=== PATIENT | male | born 2000 | race Caucasian/White ===

== ENCOUNTER 2019-12-11 15:24 | Emergency (ER) | payer BC, OTHER ==
[2019-12-11] MEDS ORDERED: Ketorolac 10 MG Tab PO ONE (15:25)
--- NOTE | 2019-12-11 15:52 | EDM.PDOC ---
ED HPI GENERAL MEDICAL PROBLEM - General Chief Complaint: Upper Extremity Injury/Pain Stated Complaint: R shoulder pain Time Seen by Provider: 12/11/19 15:36 Source of Information: Reports: Patient, Family, RN Notes Reviewed - History of Present Illness INITIAL COMMENTS - FREE TEXT/NARRATIVE: Patient to the emergency department where he fell about 8:00 last night off of a stool he landed on his buttocks, the patient denies striking the floor with any other part of his body does denies striking any other part of his body on a wall or any other type of thing however the patient does complain of right shoulder pain. The patient denies hitting his head there is no loss of consciousness denies any neck, back pain or stiffness denies any chest pain or shortness of breath denies any abdominal pain no nausea no vomiting denies any other symptoms Duration: Day(s): (Yesterday) Location: Reports: Upper Extremity, Right (Right shoulder) Quality: Reports: Ache Severity: Moderate Improves with: Reports: None Worsens with: Reports: Movement Associated Symptoms: Denies: Chest Pain, Cough, Nausea/Vomiting, Shortness of Breath, Weakness Treatments [employer]: Reports: Other (see below) (None) Right Shoulder Pain Score (Numeric/FACES): 6 - Related Data Allergies Allergy/AdvReac Type Severity Reaction Status Date / Time No Known Allergies Allergy Verified 12/11/19 15:26 Home Meds: Home Meds . [No Known Home Meds] 12/11/19 [History] Past Medical History - Past Health History Medical/Surgical History: Denies Medical/Surgical History - Past Surgical History Other Surgical History Comment: No past surgeries Social & Family History - Family History Cardiac: Reports: Hypertension - Tobacco Use Smoking Status *Q: Never Smoker - Alcohol Use Alcohol Use History: Yes Alcohol Use Frequency: Socially - Living Situation & Occupation Living situation: Reports: Single, with Family Review of Systems - Review of Systems Review Of Systems: See Below Constitutional: Reports: No Symptoms. Denies: Chills, Fever Eyes: Reports: No Symptoms Ears: Reports: No Symptoms Nose: Reports: No Symptoms Mouth/Throat: Reports: No Symptoms Respiratory: Reports: No Symptoms. Denies: Shortness of Breath Cardiovascular: Reports: No Symptoms. Denies: Chest Pain GI/Abdominal: Reports: No Symptoms. Denies: Abdominal Pain, Nausea, Vomiting Genitourinary: Reports: No Symptoms Musculoskeletal: Reports: Shoulder Pain. Denies: Neck Pain, Back Pain Skin: Reports: No Symptoms Neurological: Reports: No Symptoms. Denies: Headache Psychiatric: Reports: No Symptoms ED EXAM, GENERAL - Physical Exam Exam: See Below Exam Limited By: No Limitations General Appearance: Alert, WD/WN, No Apparent Distress Ears: Normal External Exam Nose: Normal Inspection Throat/Mouth: Normal Inspection, Normal Voice, No Airway Compromise Head: Atraumatic, Normocephalic Neck: Normal Inspection, Supple, Non-Tender, Full Range of Motion Respiratory/Chest: No Respiratory Distress, Lungs Clear, Normal Breath Sounds, No Accessory Muscle Use, Chest Non-Tender Cardiovascular: Normal Peripheral Pulses, Regular Rate, Rhythm, No Murmur Peripheral Pulses: 2+: Radial (L), Radial (R) GI/Abdominal: Soft, Non-Tender Back Exam: Normal Inspection, Full Range of Motion Extremities: Normal Inspection, Normal Range of Motion, Normal Capillary Refill , Other (Pain in the right shoulder) Neurological: Alert, Oriented, Normal Cognition, Normal Gait, No Motor/Sensory Deficits Psychiatric: Normal Affect, Normal Mood Skin Exam: Warm, Dry, Intact, Normal Color Course - Vital Signs Text/Narrative:: The patient underwent a complete right shoulder xray which does not reveal any fracture or dislocation. An AP chest was performed as this is a very tall thin male patient and a pneumothorax is on the list of differentials, especially with no significant mechanism of injury for shoulder pain. The AP chest does not show any pneumothorax as there is lung tissue/markings that goes all the way to the edges of the chest wall. However, the radiologist has not read this film and the radiology reading of course is pending and will be correlated to my findings. The patient will be discharged home, he will be advised to apply ice off-and-on frequently to his shoulder, the patient will be given Toradol 10 mg 3 times daily as needed the patient will be advised to follow-up in 4 to 5 days if not better he is to return to the emergency department sooner if worse or any problems. Last Recorded V/S: Last Vital Signs Temp 35.9 C 12/11/19 15:24 Pulse 51 L 12/11/19 15:24 Resp 16 12/11/19 15:24 BP 129/68 12/11/19 15:24 Pulse Ox 100 12/11/19 15:24 - Orders/Labs/Meds Orders: Active Orders 24 hr Category Date Time Status Chest 1V Frontal [CR] Stat Exams 12/11/19 15:42 Ordered Shoulder Comp Rt [CR] Routine Exams 12/11/19 Ordered Departure - Departure Time of Disposition: 16:01 Disposition: Home, Self-Care 01 Condition: Good Clinical Impression: Fall, Right shoulder strain - Discharge Information *PRESCRIPTION DRUG MONITORING PROGRAM REVIEWED*: Not Applicable *COPY OF PRESCRIPTION DRUG MONITORING REPORT IN PATIENT BERYL: Not Applicable Instructions: Shoulder Pain, [id number] Forms: ED Department Discharge Additional Instructions: Ice off-and-on frequently to your shoulder Toradol 10 mg 3 times a day as needed for pain follow-up with your family doctor in 4 to 5 days if not better, return to the emergency department sooner if worse or any problems Sepsis Event Note - Evaluation Sepsis Screening Result: No Definite Risk - Focused Exam Vital Signs: Vital Signs Temp Pulse Resp BP Pulse Ox 12/11/19 15:24 35.9 C 51 L 16 129/68 100 Date Exam was Performed: 12/11/19 Time Exam was Performed: 15:58 - Problem List & Annotations (1) Fall SNOMED Code(s): 9917812, 227364673 Code(s): W19.XXXA - UNSPECIFIED FALL, INITIAL ENCOUNTER Status: Acute Priority: Medium Qualifiers: Encounter type: initial encounter Qualified Code(s): W19.XXXA - Unspecified fall, initial encounter (2) Right shoulder strain SNOMED Code(s): 817144677 Code(s): S46.911A - STRAIN UNSP MUSC/FASC/TEND AT SHLDR/UP ARM, RIGHT ARM, INIT Status: Acute Priority: Medium Qualifiers: Encounter type: initial encounter Qualified Code(s): S46.911A - Strain of unspecified muscle, fascia and tendon at shoulder and upper arm level, right arm , initial encounter - Problem List Review Problem List Initiated/Reviewed/Updated: Yes - My Orders Last 24 Hours: My Active Orders 12/11/19 Shoulder Comp Rt [CR] Routine 12/11/19 15:42 Chest 1V Frontal [CR] Stat - Assessment/Plan Last 24 Hours: My Active Orders 12/11/19 Shoulder Comp Rt [CR] Routine 12/11/19 15:42 Chest 1V Frontal [CR] Stat Plan: As above
[2019-12-11] MEDS ORDERED: Take Home: Ketorolac 10 MG Tab, 4 Tab Pack PO ONE (16:06)
== END 2019-12-11 16:13 | disposition home or self-care (01) ==
LOC: CC.ED 15:24
DX: S46.911A Strain of unspecified muscle, fascia and tendon at shoulder and upper arm level, right arm, initial encounter (principal); W01.198A Fall on same level from slipping, tripping and stumbling with subsequent striking against other object, initial encounter
CPT/HCPCS: 71045; 73030; 99283; A9270

== ENCOUNTER 2024-08-20 19:24 | Emergency (ER) | payer BC, OTHER ==
[2024-08-20 19:51] LABS: BASOPHILS ABSOLUTE AUTO 0.07 10^3/uL (0.00-0.50); BASOPHILS PERCENT AUTO 0.9 % (0-1); EOSINOPHILS ABSOLUTE AUTO 0.73 10^3/uL (0.00-1.50); EOSINOPHILS PERCENT AUTO 9.7 % (0-6); HEMATOCRIT 46.4 % (42.0-52.0); HEMOGLOBIN 14.9 g/dL (14.0-18.0); IMMATURE GRAN ABSOLUTE AUTO 0.01 10^3/uL (0.00-0.49); IMMATURE GRAN PERCENT AUTO 0.1 % (0.0-4.9); LYMPHOCYTES ABSOLUTE AUTO 2.15 10^3/uL (0.60-5.00); LYMPHOCYTES PERCENT AUTO 28.5 % (24-44); MEAN CORPUSCULAR HEMOGLOBIN 27.6 pg (27.0-32.0); MEAN CORPUSCULAR HGB CONC 32.1 g/dL (32.0-36.0); MEAN CORPUSCULAR VOLUME 85.9 fL (83.0-97.0); MONOCYTES ABSOLUTE AUTO 0.78 10^3/uL (0.00-1.50); MONOCYTES PERCENT AUTO 10.3 % (0-10); NEUTROPHILS ABSOLUTE AUTO 3.81 x10^3/uL (1.80-8.00); NEUTROPHILS PERCENT AUTO 50.5 % (41-71); PLATELET COUNT,PLT 252 10^3/uL (150-400); WHITE BLOOD CELL COUNT,WBC 7.6 10^3/uL (4.0-11.0)
[2024-08-20 20:12] LABS: ALBUMIN 4.5 g/dL (3.4-5.0); BILIRUBIN TOTAL 0.4 mg/dL (0.0-1.0); CALCIUM 10.1 mg/dL (8.4-10.1); EST CRCL DRUG DOSING (CG) 142.31 mL/min; MAGNESIUM 1.8 mg/dL (1.8-2.4); POTASSIUM,K 4.4 mEq/L (3.5-5.0)
[2024-08-20 20:30] LABS: D-DIMER QUANTITATIVE 0.21 (0.00-0.50); PTT,PARTIAL THROMBOPLSTIN TIME 26.9 SEC (20.0-30.0)
== END 2024-08-20 21:00 | disposition home or self-care (01) ==
LOC: CC.ED 19:24
DX: R07.89 Other chest pain (principal)
CPT/HCPCS: 36415; 71046; 80053; 83690; 83735; 84484; 85025; 85379; 85730; 93005; 99285